=== PATIENT | male | born 1980 | race Caucasian/White ===

== ENCOUNTER 2019-06-12 12:28 | Day surgery (SDC) | payer OTHER ==
[2019-06-09 10:37] VITALS: BMI 38.0
[2019-06-12] MEDS ORDERED: MIDAZOLAM HCL 2 MG/2 ML SINGLE DOSE VIAL ONE (14:42)
[2019-06-12] MEDS ORDERED: KETOROLAC TROMETHAMINE 30 MG/1 ML VIAL ONE (14:46)
[2019-06-12 15:33] VITALS: PULSE 58
--- NOTE | 2019-06-12 16:15 | OP ---
Operative Note - Note: Operative Date: 06/12/19 Pre-Operative Diagnosis: Left renal stone Operation: Left ESWL Findings: 5 mm mid pole Left RenaL STONE Post-Operative Diagnosis: Same as Pre-op Surgeon: Navid Valladares Anesthesia: Fractional Estimated Blood Loss (mls): 0 Operative Report Dictated: Yes
[2019-06-12 16:32] VITALS: BP 132/64; TEMP 97.9
--- NOTE | 2019-06-13 07:37 | OP ---
DATE OF OPERATION: 06/12/2019 PREOPERATIVE DIAGNOSIS: Left renal stone. POSTOPERATIVE DIAGNOSIS: Left renal stone. PROCEDURE: Left extracorporeal shock wave lithotripsy. ATTENDING: Abdiaziz Nur MD ANESTHESIA: Fractional. OPERATION WENT FOLLOWS: The patient was brought in the operating room, placed in supine position on the operating room table. Ultrasonography and fluoroscopy were performed. A 5-mm left mid pole stone was identified. At this point, anesthesia and preoperative antibiotics were administered. Shock wave lithotripsy was then performed. Excellent fragmentation of the stone was noted under real time ultrasonography and fluoroscopy. There were no complications noted. ABDIAZIZ NUR M.D. [id number]
== END 2019-06-12 16:35 | disposition home or self-care (01) ==
LOC: JASU-SURG 12:28
PROVIDERS: ATTEND Urology
PROC: 0TF4XZZ Fragmentation in Left Kidney Pelvis, External Approach (ICD-10-PCS; principal; 2019-06-12 14:00)
DX: N20.0 Calculus of kidney (principal)

== ENCOUNTER 2021-11-24 04:24 | Day surgery (SDC) | payer OTHER ==
[2021-11-20 13:38] VITALS: BMI 37.2
[2021-11-24] MEDS ORDERED: MIDAZOLAM HCL 2 MG/2 ML SINGLE DOSE VIAL ONE ×2 (08:28→09:37)
[2021-11-24] MEDS ORDERED: oxyCODONE HCL 5 MG TABLET PO PRN (09:14)
[2021-11-24] MEDS ORDERED: ACETAMINOPHEN 500 MG TABLET (FP) PO PRN (09:14)
[2021-11-24] MEDS ORDERED: ONDANSETRON 4 MG/2 ML VIAL IVPUSH PRN (09:14)
[2021-11-24] MEDS ORDERED: LACTATED RINGERS SOLUTION 1,000 ML IV SCH (09:15)
[2021-11-24 11:02] VITALS: BP 125/78; PULSE 73; TEMP 98.8
== END 2021-11-24 11:00 | disposition home or self-care (01) ==
LOC: JASU-SURG 04:24
PROVIDERS: ATTEND Urology
PROC: 0TF3XZZ Fragmentation in Right Kidney Pelvis, External Approach (ICD-10-PCS; principal; 2021-11-24 09:30)
DX: N20.0 Calculus of kidney (principal)